=== PATIENT | female | born 1950 | race Caucasian/White ===

== ENCOUNTER 2024-07-14 11:42 | Emergency (ER) | payer MEDICARE ==
[~2024-07-14] VITALS: Ht 165.1 cm; Wt 140.0 kg
[2024-07-14] MEDS ORDERED: FURO40TA6 PO (11:55)
[2024-07-14] MEDS ORDERED: POTA-92 PO (11:55)
[2024-07-14 12:03] VITALS: BP 128/64; PULSE 84; RESP 18; TEMP 98.4; O2SAT 94
[2024-07-14] MEDS: METHOCARBAMOL 500 MG TABLET PO ONE (12:54)
[2024-07-14] MEDS: ACETAMINOPHEN/CODEINE 300-60 MG TABLET PO ONE (12:59)
[2024-07-14] MEDS ORDERED: ACET1TAB97 PO (13:57)
== END 2024-07-14 14:16 | disposition home or self-care (01) ==
LOC: EMS 11:47
DX: S80.811A Abrasion, right lower leg, initial encounter (principal); G89.29 Other chronic pain; M54.9 Dorsalgia, unspecified; M54.2 Cervicalgia; J44.9 Chronic obstructive pulmonary disease, unspecified; Z88.7 Allergy status to serum and vaccine; Z88.8 Allergy status to other drugs, medicaments and biological substances; Z91.041 Radiographic dye allergy status; Z79.899 Other long term (current) drug therapy; V49.40XA Driver injured in collision with unspecified motor vehicles in traffic accident, initial encounter; Y93.89 Activity, other specified; Y92.410 Unspecified street and highway as the place of occurrence of the external cause; Y99.8 Other external cause status
CPT/HCPCS: 99283